=== PATIENT | male | born 1990 | race Caucasian/White ===

== ENCOUNTER 2018-10-25 20:41 | Emergency (ER) | payer OTHER ==
[~2018-10-25] VITALS: Ht 175.3 cm; Wt 120.5 kg
[~2018-10-25 20:41] MED LIST: AMOXICILLIN875 MG OR; BACTRIM DS1 TAB PO; CEPHALEXIN500 MG PO; CIPRO500 MG OR; KEFLEX500 MG OR; LORTAB 1010 MG PO; MEDDOSEPAK OR; NO CURRENT MEDS; NO HOME MEDS; PREVPAC OR; PROAIR HFA IN; SOMA350 MG PO; TORADOL OR; TRIMOX500 MG PO; ULTRAM50 MG OR; VENTOLIN HF1 IN; VENTOLIN HFA IN; ZITHROMAX500 MG OR
[2018-10-25] MEDS ORDERED: PROVENTIL0.083 % IN (20:50)
--- NOTE | 2018-10-25 20:56 | NUR ---
BREATHING TREATMENT GIVEN BACK TO BACK. BREATHING TECH. FOR GOOD DEPOSITION TO THE LUNGS.
[2018-10-25 20:58] LABS: IMMATURE GRANULOCYTES 0.3 % (0.0-5.0); MEAN CELL VOLUME 90.3 fL CALC (80.0-100.0); MEAN CORPUSCULAR HGB 29.9 pG CALC (26.0-32.0); MEAN CORPUSCULAR HGB CONC 33.1 g/L CALC (32.0-36.0); NEUT# 5.18 thou/uL (1.82-7.42); RED BLOOD COUNT 4.65 mill/uL (4.70-6.10); RED CELL DISTRI WIDTH 13.2 % (11.5-15.5)
[2018-10-25 21:13] LABS: HEMOGLOBIN 13.9 g/dl (14.0-18.0)
[2018-10-25] MEDS ORDERED: VENTOLIN HFA IN (21:40)
[2018-10-25] MEDS ORDERED: ALBUTEROL SUL0.083 % IN (21:40)
[2018-10-25] MEDS ORDERED: PREDNISONE50 MG PO (21:40)
[2018-10-25 22:00] VITALS: BP 144/77
== END 2018-10-25 22:02 | disposition home or self-care (01) | DRG 203 ==
LOC: ED 20:41
PROVIDERS: Family Medicine
DX: J45.901 Unspecified asthma with (acute) exacerbation (principal); F17.210 Nicotine dependence, cigarettes, uncomplicated; R06.02 Shortness of breath; R05 Cough

== ENCOUNTER 2019-03-16 12:35 | Emergency (ER) | payer OTHER ==
[~2019-03-16] VITALS: Ht 175.3 cm; Wt 125.2 kg
[~2019-03-16 12:35] MED LIST changes: +ALBUTEROL SUL0.083 % IN; +PREDNISONE50 MG PO; +PROVENTIL0.083 % IN
[2019-03-16] MEDS ORDERED: TRILEPTAL150 MG PO (13:19)
[2019-03-16] MEDS ORDERED: ATORVASTATIN CA20 MG PO (13:20)
[2019-03-16 13:33] LABS: URINE BILIRUBIN - DIPSTICK NEGATIVE (NEGATIVE); URINE BLOOD DIPSTICK NEGATIVE (NEGATIVE); URINE COLOR YELLOW; URINE GLUCOSE - DIPSTICK NEGATIVE (NEGATIVE); URINE KETONE NEGATIVE (NEGATIVE); URINE LEUK ESTERASE NEGATIVE (NEGATIVE); URINE NITRITE - DIPSTICK NEGATIVE (Negative); URINE PH 7.5 (4.5-8.0); URINE PROTEIN - DIPSTICK NEGATIVE (NEG-TRACE)
[2019-03-16 14:33] VITALS: BP 124/78
== END 2019-03-16 14:37 | disposition home or self-care (01) | DRG 552 ==
LOC: ED 12:35
DX: M54.9 Dorsalgia, unspecified (principal); F17.220 Nicotine dependence, chewing tobacco, uncomplicated

== ENCOUNTER 2019-05-17 | Emergency (ER) | payer OTHER ==
[~2019-05-17] MED LIST changes: +ATORVASTATIN CA20 MG PO; +TRILEPTAL150 MG PO
[2019-05-17 01:32] LABS: HEMATOCRIT 43.5 % (39.0-50.0); HEMOGLOBIN 14.7 g/dl (14.0-18.0); IMMATURE GRANULOCYTES 0.3 % (0.0-5.0); MEAN CELL VOLUME 88.8 fL CALC (80.0-100.0); MEAN CORPUSCULAR HGB CONC 33.8 g/L CALC (32.0-36.0); NEUT# 4.7 thou/uL (1.82-7.42); RED BLOOD COUNT 4.9 mill/uL (4.70-6.10); RED CELL DISTRI WIDTH 13.2 % (11.5-15.5); URINE BILIRUBIN - DIPSTICK NEGATIVE (NEGATIVE); URINE BLOOD DIPSTICK NEGATIVE (NEGATIVE); URINE COLOR YELLOW; URINE GLUCOSE - DIPSTICK NEGATIVE (NEGATIVE); URINE KETONE NEGATIVE (NEGATIVE); URINE LEUK ESTERASE NEGATIVE (NEGATIVE); URINE NITRITE - DIPSTICK NEGATIVE (Negative); URINE PH 6.5 (4.5-8.0); URINE PROTEIN - DIPSTICK NEGATIVE (NEG-TRACE); URINE UROBILINOGEN - DIPSTICK 0.2 E.U./dL (0.2)
[2019-05-17 01:34] LABS: BARBITURATES NEGATIVE (NEGATIVE); COCAINE NEGATIVE (NEGATIVE); METHADONE NEGATIVE (NEGATIVE); OXCYCODONE NEGATIVE (NEGATIVE); TETRAHYDROCANNABIONOL NEGATIVE (NEGATIVE); TRICYLIC ANTIDEPRESSANTS NEGATIVE (NEGATIVE)
[2019-05-17 01:47] LABS: ALKALINE PHOSPHATASE 55 u/l (38-126); ANION GAP 13 (6-22 (CALC)); BILIRUBIN, TOTAL 0.4 mg/dL (0.0-1.4); BUN 19 mg/dL (9-20); BUN/CREATININE RATIO 30 (12-20 (CALC)); CARBON DIOXIDE 23 mmol/l (22-30); CHLORIDE 104 mmol/l (95-108); CREATININE 0.6 mg/dL (0.7-1.3); GFR > 60 ML/MIN (>=60 (CALC)); GFR FOR AFR.AMER. > 60 ML/MIN (>=60 (CALC)); SGOT/AST 28 u/l (17-59); SODIUM 136 mmol/l (137-146); TOTAL PROTEIN 7.3 g/dL (6.3-8.2)
[2019-05-17 01:48] LABS: POTASSIUM 4.3 mmol/l (3.5-5.1)
== END 2019-05-17 03:11 | disposition home or self-care (01) | DRG 103 ==
PROVIDERS: Emergency Medicine
DX: R51 Headache (principal); F17.210 Nicotine dependence, cigarettes, uncomplicated

== ENCOUNTER 2020-09-21 21:53 | Emergency (ER) | payer BC ==
[2020-09-21] MEDS ORDERED: LAMICTAL100 M1 PO (22:18)
[2020-09-21] MEDS ORDERED: TRAMADOL HCL50 MG PO (22:23)
[2020-09-21] MEDS ORDERED: VOLTAREN75 MG PO (22:23)
[2020-09-21] MEDS ORDERED: AMOXICILLIN500 MG PO (22:23)
[2020-09-21 22:36] VITALS: BP 146/93
== END 2020-09-21 22:36 | disposition home or self-care (01) | DRG 159 ==
LOC: ED 21:53
DX: K02.9 Dental caries, unspecified (principal); J45.909 Unspecified asthma, uncomplicated; F31.9 Bipolar disorder, unspecified; F17.200 Nicotine dependence, unspecified, uncomplicated

== ENCOUNTER 2021-11-09 23:32 | Emergency (ER) | payer BC ==
[~2021-11-09] VITALS: Ht 175.3 cm; Wt 127.0 kg
[~2021-11-09 23:32] MED LIST changes: +AMOXICILLIN500 MG PO; +LAMICTAL100 M1 PO; +TRAMADOL HCL50 MG PO; +VOLTAREN75 MG PO
[2021-11-09 23:41] VITALS: BP 125/72
[2021-11-10 00:21] LABS: HEMATOCRIT 40.6 % (39.0-50.0); HEMOGLOBIN 13.3 g/dl (14.0-18.0); IMMATURE GRANULOCYTES 0.7 % (0.0-5.0); MEAN CELL VOLUME 90.2 fL CALC (80.0-100.0); MEAN CORPUSCULAR HGB 29.6 pG CALC (26.0-32.0); MEAN CORPUSCULAR HGB CONC 32.8 g/dL CAL (32.0-36.0); NEUT# 5.54 thou/uL (1.82-7.42); RED BLOOD COUNT 4.5 mill/uL (4.70-6.10); RED CELL DISTRI WIDTH 12.7 % (11.5-15.5)
[2021-11-10 00:31] VITALS: BP 109/63
[2021-11-10 00:31] LABS: URINE BILIRUBIN - DIPSTICK NEGATIVE (NEGATIVE); URINE BLOOD DIPSTICK NEGATIVE (NEGATIVE); URINE COLOR YELLOW; URINE GLUCOSE - DIPSTICK NEGATIVE (NEGATIVE); URINE KETONE NEGATIVE (NEGATIVE); URINE LEUK ESTERASE NEGATIVE (NEGATIVE); URINE NITRITE - DIPSTICK NEGATIVE (Negative); URINE PH 6.5 (4.5-8.0); URINE PROTEIN - DIPSTICK NEGATIVE (NEG-TRACE); URINE SPECIFIC GRAVITY 1.025
[2021-11-10 00:33] LABS: ALBUMIN 3.8 g/dL (3.2-5.0); ALKALINE PHOSPHATASE 44 u/l (38-126); BUN 17 mg/dL (9-20); BUN/CREATININE RATIO 25 (12-20 (CALC)); CARBON DIOXIDE 24 mmol/l (22-30); CHLORIDE 105 mmol/l (95-108); CREATININE 0.7 mg/dL (0.7-1.3); GFR FOR AFR.AMER. > 60 ML/MIN (>=60 (CALC)); GFR OTHER RACES > 60 ML/MIN (>=60 (CALC)); SGOT/AST 17 u/l (17-59); SODIUM 137 mmol/l (137-146); TOTAL PROTEIN 6.6 g/dL (6.3-8.2)
[2021-11-10 00:34] LABS: ANION GAP 11 (6-22 (CALC)); BILIRUBIN, TOTAL 0.2 mg/dL (0.0-1.4); POTASSIUM 3.3 mmol/l (3.5-5.1)
[2021-11-10] MEDS ORDERED: PAXLOVID PO (00:52)
[2021-11-10 00:54] VITALS: BP 109/63
== END 2021-11-10 01:02 | disposition home or self-care (01) | DRG 179 ==
LOC: ED 23:32
PROVIDERS: Emergency Medicine
DX: U07.1 COVID-19 (principal); R52 Pain, unspecified; J45.909 Unspecified asthma, uncomplicated; F31.9 Bipolar disorder, unspecified; F17.200 Nicotine dependence, unspecified, uncomplicated

== ENCOUNTER → 2023-12-26 | Emergency (ER) | payer OTHER, BC ==
[~2023-12-26] VITALS: Ht 175.3 cm; Wt 138.3 kg
[~2023-12-26] MED LIST changes: +DEXAMETHASONE SOD. PHOSPHATE 10 MG/ML VIAL IM ONE; +KETOROLAC TROMETHAMINE 30 MG/ML SDV IM ONE; +NABUMETONE750 MG PO; +ORPHENADRINE100 MG PO; +PAXLOVID PO
[2023-12-26 11:05] VITALS: BP 127/78
== END | disposition home or self-care (01) | DRG 563 ==
LOC: ED 10:33
DX: S46.211A Strain of muscle, fascia and tendon of other parts of biceps, right arm, initial encounter (principal); J45.909 Unspecified asthma, uncomplicated; F31.9 Bipolar disorder, unspecified; X58.XXXA Exposure to other specified factors, initial encounter; Y99.0 Civilian activity done for income or pay